=== PATIENT | female | born 2005 | race Caucasian/White ===

== ENCOUNTER 2023-01-10 17:34 | Emergency (ER) | payer MEDICAID, SELFPAY ==
[2023-01-10 17:54] VITALS: BP 110/80; PULSE 80; RESP 18; TEMP 36.7; O2SAT 99; BMI 19.7
--- NOTE | 2023-01-10 17:55 | ED_ITS ---
HPI - Female Genitourinary General Chief complaint: Urogenital-Female Stated complaint: UTI X1WEEK, MEDS NOT HELPING PER EMS Time Seen by Provider: 01/10/23 19:39 Source: patient, RN notes reviewed and old records reviewed Mode of arrival: ambulatory History of Present Illness HPI Narrative: 17-year-old female with no significant past medical history presenting to the ED complaining of dysuria, urinary frequency/hesitancy and suprapubic abdominal discomfort x1 week. Admits to taking OTC Azo without relief, finished today. Denies fever/chills, nausea/vomiting, flank pain, vaginal bleeding/discharge MD elicited complaint: dysuria and UTI Related Data Previous Rx's Medication Instructions Recorded nitrofurantoin 100 mg PO Q12H 7 days #14 caps 01/10/23 monohydrate/macrocrystals 100 mg capsule (Macrobid) phenazopyridine 200 mg tablet 200 mg PO TID PRN pain 6 doses #6 01/10/23 (Pyridium) tabs Allergies Allergy/AdvReac Type Severity Reaction Status Date / Time No Known Allergies Allergy Verified 01/10/23 17:55 Review of Systems Review of Systems: Constitutional: No Fever, No Chills ENT/Mouth: No Ear Pain, No Nasal Congestion, No Hoarseness, No sore throat, No Rhinorrhea, No Swallowing Difficulty Cardiovascular: No Chest Pain, No SOB Respiratory: No Cough, No Sputum, No Wheezing Gastrointestinal: No Nausea, No Vomiting, No Diarrhea, No Constipation, No Abdominal pain Genitourinary: + Dysuria, + Urinary Frequency, + urinary hesitancy, No Hematuria, No Urinary Incontinence/retention, No Flank Pain Musculoskeletal: No joint pain, No Myalgias, No Joint Swelling Skin: No Skin Lesions, No rash Neuro: No Weakness Yes all other systems are reviewed and are negative Constitutional: Constitutional: Reports as per [facility] Past Medical History Attestation statement: The following information was validated with the patient. Source: old records reviewed Physical Exam Vital Signs: Vital Signs: Last Vital Signs Temp 98.0 F 01/10/23 17:54 Pulse 80 01/10/23 17:54 Resp 18 01/10/23 17:54 BP 110/80 01/10/23 17:54 Pulse Ox 99 01/10/23 17:54 O2 Del Method Room Air 01/10/23 17:54 BMI result Body Mass Index 19.7 Const: General: cooperative, healthy appearing and no acute distress Orientation/consciousness: patient oriented x3 Limitations: no limitations HEENT: Head: Yes normal to inspection and Yes atraumatic Ears: hearing grossly normal bilaterally General nose exam: Normal external nose present Face and sinus: Yes normal facial exam Eyes: General: appearance normal, both eyes and all related structures EOM: EOMs intact bilaterally Neck: Neck: Yes normal visual inspection and Yes no meningeal signs Resp: Effort & Inspection: normal respiratory effort and no respiratory distress Cardio: Rate: regular rate GI: Inspection: Yes normal to inspection Palpation (GI): Soft to palpation, nontender, no guarding and not rigid : General: Yes no CVA tenderness Back/Spine/Pelvis: Back: no CVA tenderness Skin: Rashes: no rashes Wounds: no wounds Neuro: General: patient oriented x3, tone normal and no meningeal signs Cranial nerves: Yes CN's II-XII intact bilaterally Gait exam (Neuro): Normal gait present Extrem: General: Yes normal to inspection Course Course Course Narrative: RME: 17yo F w/no sig PMHx c/o dysuria, suprapubic abdominal pain and urinary frequency x1 week. Was taking OTC meds without relief. denies fever, chills, flank pain UA & U-preg ordered Full HPI, ROS and PE to be performed by primary ED provider. -UA infected, negative. Patient given 1st dose of Macrobid and Pyridium in the ED Results discussed with patient including worrisome signs and symptoms and strict return precautions, and when to return to the emergency department. They verbalized understanding and feel safe for discharge at this time. Medical Decision Making Medical Decision Making [facility] Narrative: 17-year-old female with no significant past medical history presenting to the ED complaining of dysuria, urinary frequency/hesitancy and suprapubic abdominal discomfort x1 week. On exam vital signs stable, NAD, nontoxic appearing, abdomen soft/nontender, no CVAT. Concern for UTI. Rule out . Low suspicion for pyelonephritis, ovarian cyst/torsion, appendicitis/diverticulitis Plan: UA and urine Please refer to course for remaining clinical decision making, interpretation of labs/imaging results, and discussions with consultants and/or family members. Differential Diagnosis Differential Diagnoses: The differential diagnosis associated with the presentation includes As above Admission/Observation Consideration of admission/observation: Escalation of care including admission/observation considered Lab Data MDM Lab Attestation statement: I reviewed the patient's lab results. Labs: Lab Results 01/10/23 01/10/23 Range/Units 18:08 18:08 Urine Color Yellow Urine Appearance Cloudy Urine pH 7.0 (5.0-9.0) Ur Specific [place] 1.010 (1.005-1.025) Urine Protein 100 (2+) H (Neg-Trace) mg/dL Urine Glucose (UA) Negative (Negative) mg/dL Urine Ketones Negative (Negative) mg/dL Urine Blood Small (1+) H (Negative) Urine Nitrite Negative (Negative) Ur Leukocyte Esterase Large (3+) H (Negative) Urine RBC >20 H (0-2) /HPF Urine WBC >50 H (0-5) /HPF Ur Squamous Epith Cells 0-2 (0-2) /HPF Urine Bacteria None Seen (None Seen) Hyaline Casts 3-5 (0-2) /LPF Urine Test NEGATIVE (NEGATIVE) Tests considered The following testing was considered but not selected: As above Prescription Management I considered prescription management with: Pain Medication and Antibiotic Discharge Plan Discharge Clinical Impression: Urinary tract infection Patient Disposition: Home, Self-Care Instructions: Urinary Tract Infection in Women (DC) Additional Instructions: you have a urinary tract infection Macrobid is an antibiotic please take as prescribed Pyridium will help with urinary discomfort & will turn your urine orange follow up with your doctor tomorrow as scheduled Prescriptions: New phenazopyridine [Pyridium] 200 mg tablet 200 mg PO TID PRN (Reason: pain) Qty: 6 0RF nitrofurantoin monohyd/m-cryst [Macrobid] 100 mg capsule 100 mg PO Q12H 7 Days Qty: 14 0RF Rx Instructions: must administer with a meal/food [place] [facility] [place] [facility] [place] [facility] [place] [facility] [place]]
[2023-01-10 18:15] LABS: Appearance Urine Cloudy; Color Urine Yellow; Glucose Urine UA Negative (Negative); Leukocyte Esterase Urine Large (3+) (Negative); Nitrite Urine Negative (Negative); UMIC TRIGGER UACC YES; UPreg QC Valid YES; Urine Blood Small (1+) (Negative); Urine Ketones Negative (Negative); Urine Pregnancy NEGATIVE (NEGATIVE); Urine Protein 100 (2+) mg/dL (Neg-Trace)
[2023-01-10 18:20] LABS: Bacteria Urine None Seen (None Seen); RBC Urine >20 /HPF (0-2); Squamous Epithelial Cell Urine 0-2 /HPF (0-2); UACC Culture Trigger YES; WBC Urine >50 /HPF (0-5)
[2023-01-10] MEDS: Phenazopyridine HCL 100 MG TABLET PO (20:00)
[2023-01-10] MEDS: Nitrofurantoin Monohyd/M-Cryst 100 MG CAPSULE PO (20:00)
== END 2023-01-10 20:03 | disposition home or self-care (01) ==
PROVIDERS: Physician Assistant; Emergency Provider Internal Medicine
DX: N39.0 Urinary tract infection, site not specified (principal); Z79.899 Other long term (current) drug therapy
CPT/HCPCS: 81001; 81025; 87086; 87088; 87186; 99283

== ENCOUNTER 2023-01-23 17:10 | Emergency (ER) | payer MEDICAID, SELFPAY ==
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
[2023-01-23 17:16] VITALS: BP 108/70; PULSE 98; O2SAT 98
[2023-01-23 17:19] VITALS: BP 96/65; PULSE 80; RESP 24; TEMP 37; O2SAT 99; BMI 20.4
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
[2023-01-23 20:57] LABS: UPreg QC Valid YES; Urine Pregnancy NEGATIVE (NEGATIVE)
[2023-01-23 21:12] LABS: HCG Quantitative < 2 mIU/mL
[2023-01-23 22:07] VITALS: BP 123/68; PULSE 56; RESP 16; TEMP 37.3; O2SAT 99
== END 2023-01-24 00:49 | disposition left against medical advice (07) ==
PROVIDERS: Registered Nurse Emergency; Emergency Provider Emergency Medicine; PCP Pediatrics
DX: R42 Dizziness and giddiness (principal); R11.2 Nausea with vomiting, unspecified; R51.9 Headache, unspecified; M54.2 Cervicalgia; Z79.899 Other long term (current) drug therapy
CPT/HCPCS: 36415; 70450; 72125; 81025; 84702; 99283; 99284